=== PATIENT | male | born 1995 | race Caucasian/White ===

== ENCOUNTER 2019-06-04 17:31 | Emergency (ER) | payer OTHER ==
[~2019-06-04] VITALS: Ht 175.3 cm; Wt 72.7 kg
[2019-06-04] MEDS ORDERED: AZITHROMYCIN 250 MG TABLET PO ONE (21:00)
[2019-06-04] MEDS ORDERED: LIDOCAINE/PF 1% 2 ML VIAL IM ONE (21:00)
[2019-06-04] MEDS ORDERED: CefTRIAXone SODIUM 1 GM/VIAL IM ONE (21:00)
[2019-06-04 21:39] VITALS: BP 121/68
[2019-06-04 22:05] LABS: APPEARANCE,URINE CLOUDY (CLEAR); BILIRUBIN,URINE NEGATIVE (NEGATIVE); GLUCOSE, URINE (UA) NEGATIVE (NEGATIVE); KETONES,URINE NEGATIVE (NEGATIVE); LEUKOCYTE ESTERASE ,URINE MODERATE (NEGATIVE); NITRATE,URINE NEGATIVE (NEGATIVE); OCCULT BLOOD,URINE NEGATIVE (NEGATIVE); PH,URINE 6.5 (5.0-8.0); PROTEIN,URINE NEGATIVE (NEGATIVE)
[2019-06-04 22:43] LABS: BACTERIA,URINE Few /HPF (None Seen); RBC,URINE 0-2 /HPF (0-2); SQUAMOUS EPITHELIAL CELL,UR Few /LPF (None Seen); WBC,URINE 26-50 /HPF (0-5)
== END 2019-06-04 22:40 | disposition home or self-care (01) ==
LOC: EMS 17:41
DX: N34.2 Other urethritis (principal)
CPT/HCPCS: 81001; 87086; 87210; 87491; 87591; 96372; 99283; J0696; J3490

== ENCOUNTER 2019-11-01 12:13 | Emergency (ER) | payer OTHER ==
[~2019-11-01] VITALS: Ht 175.3 cm; Wt 77.3 kg
[2019-11-01] MEDS ORDERED: LIDOCAINE/PF 1% 2 ML VIAL IM ONE (12:45)
[2019-11-01] MEDS ORDERED: CefTRIAXone SODIUM 1 GM/VIAL IM ONE (12:45)
[2019-11-01] MEDS ORDERED: AZITHROMYCIN 500 MG TABLET PO ONE (12:45)
[2019-11-01 13:11] VITALS: BP 126/62
== END 2019-11-01 13:28 | disposition home or self-care (01) ==
LOC: EMS 12:14
DX: A64 Unspecified sexually transmitted disease (principal)
CPT/HCPCS: 96372; 99283; J0696; J3490

== ENCOUNTER 2019-12-03 15:24 | Emergency (ER) | payer OTHER ==
[~2019-12-03] VITALS: Ht 175.3 cm; Wt 81.8 kg
[2019-12-03] MEDS ORDERED: CefTRIAXone SODIUM 1 GM/VIAL IM ONE (16:00)
[2019-12-03] MEDS ORDERED: LIDOCAINE 1% 10 ML VIAL INJ ONE (16:00)
[2019-12-03] MEDS ORDERED: AZITHROMYCIN 500 MG TABLET PO ONE (16:00)
[2019-12-03 16:31] VITALS: BP 126/83
== END 2019-12-03 16:31 | disposition home or self-care (01) ==
LOC: EMS 15:25
DX: N34.2 Other urethritis (principal)
CPT/HCPCS: 96372; 99283; J0696; J3490